=== PATIENT | male | born 1975 | race Caucasian/White ===

== ENCOUNTER 2017-05-22 17:34 | Emergency (ER) | payer SELFPAY ==
[2017-05-22 17:42] VITALS: BP 128/92; BMI 20.2
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
[2017-05-22] MEDS ORDERED: MORPHINE SULFATE INJ 4 MG IM ONE (18:08)
[2017-05-22] MEDS ORDERED: ZOFRAN INJ 4 MG VIAL IM ONE (18:08)
[2017-05-22] MEDS ORDERED: ZOFRAN INJ 4 MG VIAL ONE ×2 (18:10→21:08)
[2017-05-22] MEDS ORDERED: MORPHINE SULFATE INJ 4 MG ONE ×2 (18:11→21:09)
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
[2017-05-22] MEDS ORDERED: ZOFRAN INJ 4 MG VIAL IVP ONE (20:58)
[2017-05-22] MEDS ORDERED: MORPHINE SULFATE INJ 4 MG IVP ONE (20:58)
== END 2017-05-22 21:25 | disposition short-term general hospital (02) ==
LOC: ER 17:50
DX: S02.92XA Unspecified fracture of facial bones, initial encounter for closed fracture (principal); X58.XXXA Exposure to other specified factors, initial encounter; Y92.69 Other specified industrial and construction area as the place of occurrence of the external cause
CPT/HCPCS: 70450; 70486; 96365; 96372; 96374; 96375; 99284; 99285; A4222; J2270; J2405